=== PATIENT | female | born 1985 | race Caucasian/White ===

== ENCOUNTER 2019-05-07 01:26 | Emergency (ER) | payer MEDICAID ==
[2019-05-07] MEDS ORDERED: DEXAMETHASONE SOD PHOS INJ 10 MG/1 ML VIAL IV ONE ×2 (01:56→04:36)
[2019-05-07] MEDS ORDERED: KETOROLAC TROMETHAMINE INJ/PF 30 MG/1 ML SDV IV ONE (01:56)
[2019-05-07] MEDS ORDERED: NORMAL SALINE 1000 ML 1,000 ML IV ONE (01:56)
--- NOTE | 2019-05-07 01:58 | ER Document Report ---
ED ENT - General Chief Complaint: Cough Stated Complaint: SORE THROAT Time Seen by Provider: 05/07/19 01:45 Notes: Patient is a 33-year-old female that comes emergency department for chief complaint of worsening sore throat, increasing difficulty swallowing, increasing hoarseness for the past 4 days. She states she was running fevers as well most recently yesterday. She states now it is getting difficult to swallow anything and it is very painful to swallow anything. She states she has had a tonsillectomy. She denies abdominal pain, difficulty breathing. She has also had a hysterectomy, denies medical history otherwise TRAVEL OUTSIDE OF THE [place] IN LAST 30 DAYS: No - Related Data Allergies/Adverse Reactions: amoxicillin Allergy (Verified 05/07/19 01:42) clavulanic acid [From Augmentin] Allergy (Verified 05/07/19 01:42) Penicillins Allergy (Verified 05/07/19 01:42) Home Medications: metformin, gabapentin, adderall, metoprolol, zoloft Past Medical History - General Information source: Patient - Social History Smoking Status: Current Every Day Smoker Frequency of alcohol use: None Drug Abuse: None Lives with: Family Family History: Reviewed & Not Pertinent Patient has suicidal ideation: No Patient has homicidal ideation: No Past Surgical History: Reports: Hx Tonsillectomy Review of Systems - Review of Systems Constitutional: See HPI EENT: See HPI Cardiovascular: No symptoms reported Respiratory: No symptoms reported Gastrointestinal: No symptoms reported Genitourinary: No symptoms reported Female Genitourinary: No symptoms reported Musculoskeletal: No symptoms reported Skin: No symptoms reported Hematologic/Lymphatic: No symptoms reported Neurological/Psychological: No symptoms reported Physical Exam - Vital signs Vitals: Temp Pulse Resp BP Pulse Ox 97.5 F 80 16 128/72 H 97 05/07/19 01:32 05/07/19 01:32 05/07/19 01:32 05/07/19 01:32 05/07/19 01:32 - Notes Notes: GENERAL: Patient appears mildly uncomfortable but not in severe distress HEAD: Normocephalic, atraumatic. EYES: Pupils equal, round, and reactive to light. Extraocular movements intact. ENT: Oral mucosa dry, there appears to be lymphatic tissue adjacent to the tongue at the base of the tongue and just posterior to this which is swollen and erythematous, uvula is normal, erythema to the soft palate. Patent airway. Patient is hoarse. Nares patent, no nasal septal hematoma, TM's intact. NECK: Full range of motion. Supple. Trachea midline. LUNGS: Clear to auscultation bilaterally, no wheezes, rales, or rhonchi. No respiratory distress. HEART: Regular rate and rhythm. No murmur ABDOMEN: Soft, non-tender. Non-distended. EXTREMITIES: Moves all 4 extremities spontaneously. No edema, normal radial and dorsalis pedis pulses bilaterally. No cyanosis. BACK: no cervical, thoracic, lumbar midline tenderness. No saddle anesthesia, normal distal neurovascular exam. Moves all extremities in full range of motion. NEUROLOGICAL: Alert and oriented x3. Normal speech. Cranial nerves II through XII grossly intact. PSYCH: Normal affect, normal mood. SKIN: Warm, dry, normal turgor. No rashes or lesions noted. Course - Re-evaluation Re-evalutation: Patient is very painful swallowing. She states she is having trouble swallowing any pills now, she can swallow water but has difficulty with food. She was given IV fluids, dexamethasone, Toradol. CBC actually is unremarkable. Strep and mono were negative. Because of patient's hoarseness and difficulty swallowing with nonspecific work-up we did perform CAT scan of the neck to rule out abscess, mass, or any other concerning findings. This was negative. Patient was given additional dexamethasone, reevaluate closely for this, now symptoms are much improved. She can swallow easily, she is able to eat now and take pills, she states she feels much improved. Suspect viral pharyngitis based on the overall work-up and presentation. Because she is tolerating p.o. very well now she is stable for discharge, I discussed work-up, follow-up, return precautions. Patient states appreciation and agreement. Stable time of discharge per - Vital Signs Vital signs: Temp Pulse Resp BP Pulse Ox 97.7 F 79 16 135/79 H 96 05/07/19 04:47 05/07/19 04:47 05/07/19 04:47 05/07/19 04:47 05/07/19 04:47 - Laboratory Result Diagrams: 05/07/19 02:35 Discharge - Discharge Clinical Impression: Lymphadenopathy Pharyngitis Qualifiers: Pharyngitis/tonsillitis etiology: unspecified etiology Qualified Code(s): J02.9 - Acute pharyngitis, unspecified Condition: Stable Disposition: HOME, SELF-CARE Additional Instructions: No abscess is seen, strep is negative, mono is negative. This does appear to be a viral pharyngitis with swollen lymph nodes and swollen throat. Resolve with time. Take ibuprofen for pain, drink plenty of fluids, the steroid given here she had last in your system for the next several days as well. Follow-up with primary care. Return if you worsen including spiking fevers, severe headache, stiff neck, increased difficulty swallowing, or any other concerning or worsening symptoms.
[2019-05-07 02:47] LABS: ABSOLUTE BASOPHILS # (AUTO) 0.1 10^3/uL (0.0-0.2); ABSOLUTE EOSINOPHILS # (AUTO) 0.1 10^3/uL (0.0-0.6); ABSOLUTE LYMPHOCYTES (AUTO) 3.2 10^3/uL (0.5-4.7); ABSOLUTE MONOCYTES (AUTO) 0.7 10^3/uL (0.1-1.4); ABSOLUTE NEUT (AUTO) 5.7 10^3/uL (1.7-8.2); BASOPHILS % (AUTO) 0.6 % (0-2); EOSINOPHILS % (AUTO) 1.2 % (0-6); HEMATOCRIT 43.4 % (36.0-47.0); HEMOGLOBIN 15.2 g/dL (12.0-15.5); LYMPHOCYTES % (AUTO) 32.6 % (13-45); MEAN CORPUSCULAR HEMOGLOBIN 31.4 pg (27.0-33.4); MEAN CORPUSCULAR HGB CONC 35.1 g/dL (32.0-36.0); MEAN CORPUSCULAR VOLUME 90 fl (80-97); MONOCYTES % (AUTO) 6.8 % (3-13); PLATELET COUNT 220 10^3/uL (150-450); RED BLOOD COUNT 4.85 10^6/uL (3.72-5.28); RED CELL DISTRIBUTION WIDTH 13.2 % (11.5-14.0); SEGMENTED NEUTROPHILS % (AUTO) 58.8 % (42-78); TOTAL CELLS COUNTED % (AUTO) 100 %; WHITE BLOOD COUNT 9.7 10^3/uL (4.0-10.5)
[2019-05-07] MEDS ORDERED: MORPHINE SULFATE 10 MG/ML INJ IV ONE (04:02)
[2019-05-07] MEDS ORDERED: ONDANSETRON HCL INJ/PF 4 MG/2 ML SDV IV ONE (04:02)
--- NOTE | 2019-05-07 04:18 | RADIOLOGY REPORT (SQ) ---
EXAM DESCRIPTION: CT NECK WITH IV CONTRAST COMPLETED DATE/TME: 05/07/2019 01:55 CLINICAL HISTORY: 33 years, Female, difficulty swallowing, fevers, hoarse COMPARISON: None. TECHNIQUE: Axial CT images of the neck were obtained after the administration of IV contrast. Sagittal and coronal reformats were performed. DLP [id number]. Images stored on PACS. All CT scanners at this facility use dose modulation, iterative reconstruction, and/or weight based dosing when appropriate to reduce radiation dose to as low as reasonably achievable (ALARA). [facility]: Dose Right [facility]: CareDose [facility]: Dose Right [facility]: Teradose 4D [facility]: [employer] LIMITATIONS: None. FINDINGS: There is mild thickening and enlargement of the pharyngeal tonsils and soft palate. No focal fluid collection or abscess is identified. Cervical lymph nodes measure up to 1.2 cm in size. Glands: Thyroid: Unremarkable. Submandibular: Unremarkable. Parotid: Unremarkable. Geraldine tonsils: Unremarkable. Parapharyngeal fat: No displacement. Epiglottis: Unremarkable. Ranch Manager space: Unremarkable. Prevertebral space: No edema. Vascular structures: Unremarkable. Bones: Unremarkable. IMPRESSION: Pharyngitis. Cervical lymphadenopathy, likely reactive. TECHNICAL DOCUMENTATION: Quality ID # [id number]: Final reports with documentation of one or more dose reduction techniques (e.g., Automated exposure control, adjustment of the mA and/or kV according to patient size, use of iterative reconstruction technique) copyright 2010 [employer]- All Rights Reserved
[2019-05-07 04:56] VITALS: BP 135/79
== END 2019-05-07 04:56 | disposition home or self-care (01) ==
LOC: ER 01:26
DX: R59.0 Localized enlarged lymph nodes (principal); J02.9 Acute pharyngitis, unspecified; R05 Cough; R13.10 Dysphagia, unspecified; R49.0 Dysphonia; R50.9 Fever, unspecified; F17.200 Nicotine dependence, unspecified, uncomplicated
CPT/HCPCS: 96376; 99283; 96361; 96374; 96375; 36415; 87070; 87880; 85025; 86308; 70491; J1885; J2270; J2405; J7030; J1100